=== PATIENT | female | born 1970 | race Caucasian/White ===

== ENCOUNTER 2018-06-11 18:26 | Emergency (ER) | payer SELFPAY ==
[~2018-06-11 18:26] MED LIST: LEVO50TA7 PO; MECL-77 PO
== END 2018-06-11 19:30 | disposition left against medical advice (07) ==
LOC: FTE 18:26
DX: Z53.21 Procedure and treatment not carried out due to patient leaving prior to being seen by health care provider (principal)

== ENCOUNTER 2018-09-03 21:22 | Emergency (ER) | payer OTHER ==
[~2018-09-03] VITALS: Ht 157.5 cm; Wt 67.8 kg
[2018-09-03 21:27] VITALS: Ht 157.5 cm; Wt 67.8 kg
[2018-09-03] MEDS ORDERED: SOD CHLORIDE 0.9% 500 ML IV STA (22:36)
[2018-09-03] MEDS ORDERED: LORAZEPAM 2 MG INJ ONE (23:56)
[2018-09-04] MEDS ORDERED: LORAZEPAM 2 MG INJ IV ONE
[2018-09-04] MEDS ORDERED: LORA-441 PO (01:21)
--- NOTE | 2018-09-04 01:33 | ERD ---
ER Documentation Chief Complaint Chief Complaint RIGHT SIDED PAIN AND NUMBNESS; "FEELS WEAK"; NO NEURO DEFCITS [id number] HPI This very pleasant 48-year female, left-sided chest pain numbness and tingling to bilateral fingertips numbness and tingling to her perioral region this started while she was in the shower. Apparently, she has been under a lot of stress according to the family secondary adventist events that she is had to organ ize. Denies any symptomology whatsoever now. Patient did say she feels anxious at the time. Denies any other current problems. No past medical history. No family history of any cardiac disease. ROS All systems reviewed and are negative except as per history of present illness. Medications Home Meds Active Scripts Lorazepam* (Ativan*) 0.5 Mg Tablet, 0.5 MG PO Q8H PRN for ANXIETY, #10 TAB Prov:BETSY SANCHEZ 09/04/18 Reported Medications Levothyroxine Sodium* (Levothyroxine Sodium*) 50 Mcg Tablet, 50 MCG PO DAILY, TAB 02/27/15 Discontinued Scripts Meclizine Hcl* (Meclizine Hcl*) 25 Mg Tablet, 25 MG PO Q8H PRN for diziness, #21 TAB Prov:MARGUERITE VERONICA DO 02/27/15 Allergies Allergies: Coded Allergies: No Known Allergy (Unverified , 09/03/18) PMhx/Soc History of Surgery: Yes (SE, appendectomy) Anesthesia Reaction: No Hx Neurological Disorder: Yes (hyperthyroidism, migraines) Hx Respiratory Disorders: No Hx Cardiac Disorders: Yes (HTN) Hx Psychiatric Problems: Yes (anxiety, SI) Hx Miscellaneous Medical Probl: Yes (thyroid disorder) Hx Alcohol Use: No Hx Substance Use: No Hx Tobacco Use: No Smoking Status: Never smoker Physical Exam Vitals Vital Signs Date Temp Pulse Resp B/P (MAP) Pulse Ox O2 O2 Flow FiO2 Time Delivery Rate 09/04/18 73 17 126/84 98 Room Air 00:30 (98) 09/04/18 70 19 135/97 98 Room Air 00:00 (110) 09/03/18 67 17 146/87 98 Room Air 23:30 (106) 09/03/18 98.7 74 19 148/67 98 21:27 (94) Physical Exam Const: No acute distress Head: Atraumatic Eyes: Normal Conjunctiva ENT: Normal External Ears, Nose and Mouth. Neck: Full range of motion. No meningismus. Resp: Clear to auscultation bilaterally Cardio: Regular rate and rhythm, no murmurs Abd: Soft, non tender, non distended. Normal bowel sounds Skin: No petechiae or rashes Back: No midline or flank tenderness Ext: No cyanosis, or edema Neur: Awake and alert Psych: Normal Mood and Affect Result Diagram: 09/03/18222909/03/182229 Results 24 hrs Laboratory Tests Test 09/03/18 22:30 09/03/18 23:00 09/03/18 23:06 White Blood Count 8.3 10^3/ul Red Blood Count 4.51 10^6/ul Hemoglobin 10.5 g/dl Hematocrit 33.9 % Mean Corpuscular Volume 75.2 fl Mean Corpuscular Hemoglobin 23.3 pg Mean Corpuscular 31.0 g/dl Hemoglobin Concent Red Cell Distribution Width 18.6 % Platelet Count 306 10^3/UL Mean Platelet Volume 8.0 fl Immature Granulocytes % 0.200 % Neutrophils % 53.7 % Lymphocytes % 32.5 % Monocytes % 8.9 % Eosinophils % 3.7 % Basophils % 1.0 % Nucleated Red Blood Cells % 0.0 /100WBC Immature Granulocytes # 0.020 10^3/ul Neutrophils # 4.5 10^3/ul Lymphocytes # 2.7 10^3/ul Monocytes # 0.7 10^3/ul Eosinophils # 0.3 10^3/ul Basophils # 0.1 10^3/ul Nucleated Red Blood Cells # 0.0 10^3/ul Sodium Level 141 mmol/L Potassium Level 4.1 mmol/L Chloride Level 109 mmol/L Carbon Dioxide Level 25 mmol/L Anion Gap 7 Blood Urea Nitrogen 16 mg/dl Creatinine 0.79 mg/dl Est Glomerular Filtrat > 60 mL/min Rate mL/min Glucose Level 116 mg/dl Calcium Level 9.8 mg/dl Total Bilirubin 0.6 mg/dl Direct Bilirubin 0.00 mg/dl Indirect Bilirubin 0.6 mg/dl Aspartate Amino 20 IU/L Transf (AST/SGOT) Alanine 21 IU/L Aminotransferase (ALT/SGPT) Alkaline Phosphatase 82 IU/L Troponin I < 0.012 ng/ml B-Type Natriuretic Peptide 21 PG/ML Total Protein 7.1 g/dl Albumin 4.1 g/dl Globulin 3.00 g/dl Albumin/Globulin Ratio 1.36 Free Thyroxine Index 1.95 ug/ml Thyroxine (T4) 6.3 ug/dl Triiodothyronine (T3) Uptake 30.9 % Urine Color STRAW Urine Clarity CLEAR Urine pH 6.0 Urine Specific [place] 1.014 Urine Ketones NEGATIVE mg/dL Urine Nitrite NEGATIVE mg/dL Urine Bilirubin NEGATIVE mg/dL Urine Urobilinogen NEGATIVE mg/dL Urine Leukocyte Esterase NEGATIVE Mia/ul Urine Microscopic RBC 4 /HPF Urine Microscopic WBC 0 /HPF Urine Bacteria FEW /HPF Urine Hemoglobin 1+ mg/dL Urine Glucose NEGATIVE mg/dL Urine Total Protein NEGATIVE mg/dl Bedside Urine pH (LAB) 6.0 Bedside Urine Protein (LAB) Negative Bedside Urine Glucose (UA) Negative Bedside Urine Ketones (LAB) Negative Bedside Urine Blood 1+ Bedside Urine Nitrite (LAB) Negative Bedside Urine Leukocyte Esterase Negative (L Current Medications Medications Dose Sig/Devora Start Time Status Last (Trade) Ordered Route PRN Stop Time Admin Dose Reason Admin Sodium 500 ml @ Q1H STAT 09/03/18 DC 09/03/18 Chloride 500 mls/hr IV 22:36 23:18 09/03/18 23:35 Lorazepam 1 mg ONCE ONCE 09/04/18 DC 09/04/18 (Ativan) IV 00:00 00:00 09/04/18 00:01 Lorazepam 2 mg STK-MED 09/03/18 DC (Ativan) ONCE .ROUTE 23:56 09/03/18 23:57 Procedures/MDM EKG: Rate/Rhythm: [Normal Sinus Rhythm] QRS, ST, T-waves: [No changes consistent w/ acute ischemia] Impression: [No evidence of ischemia or arrhythmia] Chest X-ray 1V Interpreted by me: Soft Tissue: No acute abnormalities Bones: No acute abnormalities Mediastinum/Cardiac Silhouette/Lungs: [No acute abnormalities] Medical decision making: Patient's thoracic symptoms have stabilized while in the department and are stable for outpatient follow up. Exam and work up not consistent w/ ischemia, arrhythmia, PE or dissection. Patient symptomology resolved completely with administration of Ativan here. Patient be discharged home with short course of Ativan, as he likely seems that this is a stress related reaction. She has been advised to follow-up immediately via 12 15 for any return of chest pain which he does not have at all now Departure Diagnosis: Primary Impression: Chest pain Chest pain type: unspecified Qualified Codes: R07.9 - Chest pain, unspecified Condition: Stable Patient Instructions: Anxiety Reaction, Chest Pain, Uncertain Cause BETSY SANCHEZ September 04, 2018 01:33
[2018-09-04 02:21] VITALS: BP 111/58; PULSE 76; RESP 6
== END 2018-09-04 02:24 | disposition home or self-care (01) ==
LOC: E/R 21:22
DX: R07.9 Chest pain, unspecified (principal); I10 Essential (primary) hypertension
CPT/HCPCS: 36415; 71045; 80053; 81001; 83880; 84436; 84479; 84484; 85025; 93005; 96374; 99285; J2060; J7040; 81003